=== PATIENT | male | born 1985 | race Caucasian/White ===

== ENCOUNTER 2021-12-30 12:05 | Outpatient (CLI) | payer OTHER, SELFPAY ==
[2021-12-30 12:35] LABS: Hemoglobin 15.5 g/dL (14.0-18.0); Mean Corpuscular HGB Conc 33.7 g/dl (32-36); Mean Corpuscular Hemoglobin 29.1 pg (26-34); Mean Corpuscular Volume 86.5 fl (80-100); Mean Platelet Volume 9.3 fl (7.4-10.4); Platelet Count Result 314 k/mm3 (150-375); Red Blood Count 5.32 M/mm3 (4.6-6.20); Red Cell Distribution Width 12.8 % (11.5-14.5)
[2021-12-30 12:44] LABS: Alanine Aminotransferase 63 U/L (6-50); Albumin Level 4.5 g/dL (3.5-5.1); Alkaline Phosphatase 90 U/L (38-126); Anion Gap 9 mmol/L (8-16); Aspartate Amino Transferase 34 U/L (17-59); Bilirubin,Total 0.7 mg/dL (0.2-1.3); Blood Urea Nitrogen 17 mg/dL (9-20); Calcium 9.1 mg/dL (8.4-10.2); Carbon Dioxide 25 mmol/L (22-30); Chloride 103 mmol/L (98-107); Estimated Glomerular Filt Rate > 60; Glucose 103 mg/dL (65-110); Potassium 4.2 mmol/L (3.4-5.0); Sodium 137 mmol/L (137-145)
[2021-12-30 12:50] LABS: Prothrombin Time 12.8 Seconds (11.1-14.7)
[2021-12-30 13:38] LABS: Hepatitis B Surface Antigen Negative (Negative)
[2021-12-30 13:56] LABS: Hepatitis B Surface Antibody > 1000.00 s/c
[2021-12-30 14:00] LABS: Hepatitis B Surface Anti Res Positive
[2022-01-02 14:43] LABS: Hepatitis C Viral RNA PCR <15 IU/mL
[2022-01-03 18:47] LABS: Hepatitis A Antibody Total Nonreactive (Nonreactive); Hepatitis B Core Ab Total Nonreactive (Nonreactive)
[2022-01-05 13:52] LABS: ALT 50 U/L (9-46); Alpha-2-Macroglobulin 163 mg/dL (106-279); Apolipoprotein A1 147 mg/dL (94-176); Fibrosis Score 0.22; Fibrosis Stage F0-F1; GGT 91 U/L (3-90); Haptoglobin 99 mg/dL (43-212); Necroinflammat Act Grade A0-A1; Total Bilirubin 0.6 mg/dL (0.2-1.2)
== END 2021-12-30 12:06 | disposition home or self-care (01) ==
LOC: ANHLAB 12:07
PROVIDERS: Visit Provider Nurse Practitioner
DX: Z87.898 Personal history of other specified conditions (principal); R76.8 Other specified abnormal immunological findings in serum
CPT/HCPCS: 36415; 80048; 80076; 81596; 85027; 85610; 86704; 86706; 86708; 87340; 87522